=== PATIENT | female | born 1980 | race African-American/Black ===

== ENCOUNTER 2023-12-20 12:37 | Emergency (ER) | payer OTHER ==
[2023-12-20 12:54] VITALS: BP 162/67; PULSE 73; RESP 18; TEMP 98.6; BMI 43.4
== END 2023-12-20 15:23 | disposition home or self-care (01) ==
LOC: JERFT 12:37
DX: S09.90XA Unspecified injury of head, initial encounter (principal); M25.511 Pain in right shoulder; W22.8XXA Striking against or struck by other objects, initial encounter; Y99.0 Civilian activity done for income or pay
CPT/HCPCS: 99283-25